=== PATIENT | male | born 1980 | race Caucasian/White ===

== ENCOUNTER 2017-02-03 01:18 | Inpatient (IN) | payer OTHER ==
[~2017-02-03] VITALS: Ht 185.4 cm; Wt 76.5 kg
[2017-02-03 05:58] VITALS: BP 130/87
[2017-02-03 07:42] VITALS: BP 129/88
[2017-02-03 15:35] VITALS: BP 130/81
[2017-02-04 07:39] VITALS: BP 118/57
[2017-02-04 15:25] VITALS: BP 112/64
[2017-02-05 07:43] VITALS: BP 146/86
[2017-02-05 16:35] VITALS: BP 131/80
[2017-02-06 07:58] VITALS: BP 124/78
[2017-02-06 16:03] VITALS: BP 139/90
[2017-02-07 07:19] VITALS: BP 118/74
[2017-02-07 15:16] VITALS: BP 136/61
[2017-02-08 07:41] VITALS: BP 149/84
[2017-02-08 15:31] VITALS: BP 121/79
[2017-02-09 08:19] VITALS: BP 132/87; BP 135/75
[2017-02-09 15:32] VITALS: BP 143/72
[2017-02-10 07:02] VITALS: BP 137/38
[2017-02-10 15:25] VITALS: BP 118/67
[2017-02-11 07:25] VITALS: BP 136/77
[2017-02-11] MEDS ORDERED: GABAPENTIN600 MG PO (09:18)
[2017-02-11] MEDS ORDERED: FLUOXETINE HCL10 MG PO (09:18)
[2017-02-11] MEDS ORDERED: OLANZAPINE10 MG PO (09:18)
== END 2017-02-11 09:46 | disposition home or self-care (01) | DRG 885 ==
LOC: ENRESERV 01:18 → 1WEST 01:18
DX: F25.0 Schizoaffective disorder, bipolar type (principal); F60.89 Other specific personality disorders; F12.10 Cannabis abuse, uncomplicated; F10.10 Alcohol abuse, uncomplicated; Y90.6 Blood alcohol level of 120-199 mg/100 ml; Z91.14 Patient's other noncompliance with medication regimen
CPT/HCPCS: 73130; 97150 GO; 97166 GO